=== PATIENT | male | born 1980 | race Caucasian/White ===

== ENCOUNTER 2017-03-04 01:09 | Emergency (ER) | payer BC ==
[~2017-03-04] VITALS: Ht 177.8 cm; Wt 109.1 kg
[2017-03-04 01:16] VITALS: BP 144/86; TEMP 97.2
[2017-03-04] MEDS ORDERED: ROBAXIN 75750 MG/TAB PO (01:43)
[2017-03-04] MEDS ORDERED: PREDNISONE20 MG PO (01:47)
[2017-03-04 02:14] VITALS: PULSE 92
== END 2017-03-04 02:14 | disposition home or self-care (01) ==
LOC: COL.ER 01:09
DX: M54.5 Low back pain (principal); F17.200 Nicotine dependence, unspecified, uncomplicated